=== PATIENT | female | born 1955 | race Caucasian/White ===

== ENCOUNTER 2017-02-21 08:02 | Day surgery (SDC) | payer OTHER ==
[~2017-02-21] VITALS: Ht 157.5 cm; Wt 96.6 kg
[~2017-02-21 08:02] MED LIST: BACTRIM DS TAB1 EACH PO; KEFLEX500 MG PO; LEXAPRO10 MG; OMEPRAZOLE20 MG; RANITIDINE HCL150 MG PO
[2017-02-21] MEDS ORDERED: MULTIVITAMINS1 EAC7 PO (08:15)
[2017-02-21] MEDS ORDERED: CRANBERRY200 MG PO (08:15)
--- NOTE | 2017-02-21 09:37 | NUR ---
02/21/17 0937 Libertad Morris 0934-PATIENT ARRIVED TO PACU ON 3L NC O2 SAT 97% PATIENT LAYING ON LEFT LATERAL SIDE. ABDOMEN SOFT AND ROUND. PATIENT DROWSY ENCOURAGED TO PASS FLATUS.
--- NOTE | 2017-02-21 16:04 | OR ---
[facility] [address], [place] [address] Signed DATE OF PROCEDURE: 02/21/17 PREOPERATIVE DIAGNOSIS: Personal history of colonic polyps 2008. POSTOPERATIVE DIAGNOSIS: Minimal internal hemorrhoids. PROCEDURE: Colonoscopy without biopsy. ESTIMATED BLOOD LOSS: None. INDICATIONS Beverly is a 61-year-old female, who came in 2008 for screening colonoscopy. She had a tubulovillous adenomatous polyp removed in the distal sigmoid colon. She returns now for follow-up. She had missed the 5-year blake. In the meantime, she has no lower GI complaint s. There is no family history of colon cancer or polyps. In the office, I gave Beverly a pamphlet on colonoscopy and we reviewed the nature of the test along with the risks including, but not limited to gas, bloating, crampy abdominal, pain, bleeding, perforation requiring surgery, and missed diagnosis. We also discussed the need for IV conscious sedation. She expressed understanding and wished to proceed. PROCEDURE IN DETAIL Beverly was taken into our endoscopy suite and placed in the left lateral decubitus position. She was given IV sedation with 7 mg of Versed and 150 mcg of fentanyl. She was a bit difficult to keep adequately sedated. If she was a little deep, she wanted to stop breathing and if she was light, she was awaken looking around the room. She might be better served with Propofol in the future. A digital rectal exam was performed and this was unremarkable. The adult colonoscope was introduced and advanced all around into the cecum under direct visualization with camera. The prep was good. The scope was then slowly withdrawn. We saw no pathology throughout the entire colon or rectum. The scope was then retroflexed and she has very minimal internal hemorrhoid columns. After this, the gas was suctioned out and the colonoscope removed. Beverly tolerated the procedure quite well. RECOMMENDATIONS I will see Beverly back in 5 years for repeat colonoscopy. She might consider Propofol at that time. Nayeli Bond MD Electronically Signed By: NAYELI BOND MD 02/21/17 1604 PATIENT NAME: BEVERLY MORENO OPERATIVE REPORT DATE OF : 53 PHYSICIAN: NAYELI BOND MD REPORT #: [id number] REPORT IS CONFIDENTIAL AND NOT TO BE RELEASED WITHOUT AUTHORIZATION [address] [place] [address] Signed /Jose Antonio /[id number] cc: Patricia Saleh PA-C Electronically Signed By: NAYELI BOND MD 02/21/17 1604 PATIENT NAME: BEVERLY MORENO OPERATIVE REPORT DATE OF : 53 PHYSICIAN: NAYELI BOND MD REPORT #: [id number] REPORT IS CONFIDENTIAL AND NOT TO BE RELEASED WITHOUT AUTHORIZATION
== END 2017-02-21 10:12 | disposition home or self-care (01) ==
LOC: OPS 08:02 → DS 09:00 → OPS 09:00
PROVIDERS: Colon & Rectal Surgery
PROC: 0DJD8ZZ Inspection of Lower Intestinal Tract, Via Natural or Artificial Opening Endoscopic (ICD-10-PCS; principal; 2017-02-21 09:00)
DX: Z12.11 Encounter for screening for malignant neoplasm of colon (principal); E66.9 Obesity, unspecified; F32.9 Major depressive disorder, single episode, unspecified; F41.9 Anxiety disorder, unspecified; Z86.010 Personal history of colon polyps; Z98.890 Other specified postprocedural states; Z90.49 Acquired absence of other specified parts of digestive tract; Z88.8 Allergy status to other drugs, medicaments and biological substances; Z68.39 Body mass index [BMI] 39.0-39.9, adult; Z23 Encounter for immunization
CPT/HCPCS: 90674; 99152; 99153; J2250; J3010; J7120

== ENCOUNTER 2020-10-04 00:38 | Emergency (ER) | payer MEDICARE, OTHER ==
[~2020-10-04] VITALS: Ht 157.5 cm; Wt 99.8 kg
[~2020-10-04 00:38] MED LIST changes: +CRANBERRY200 MG PO; +MULTIVITAMINS1 EAC7 PO
[2020-10-04] MEDS ORDERED: ESCITALOPRAM OX10 MG PO (01:02)
[2020-10-04] MEDS ORDERED: HYDROCODON-ACE1 EA10 PO (01:40)
== END 2020-10-04 01:54 | disposition home or self-care (01) ==
LOC: ED 00:38
DX: M25.562 Pain in left knee (principal); Z88.8 Allergy status to other drugs, medicaments and biological substances
CPT/HCPCS: 73560; 99283-25

== ENCOUNTER 2022-07-12 16:30 | Emergency (ER) | payer MEDICARE, OTHER ==
[~2022-07-12] VITALS: Ht 157.5 cm; Wt 99.8 kg
[~2022-07-12 16:30] MED LIST changes: +ESCITALOPRAM OX10 MG PO; +HYDROCODON-ACE1 EA10 PO
[2022-07-12] MEDS ORDERED: LIDOCAINE HCL100 ML MT (17:51)
--- NOTE | 2022-07-13 07:15 | EKG ---
[facility] [address] [facility] [place] [address] Signed Normal sinus rhythm Anterior infarct , age undetermined Abnormal ECG No previous ECGs available Confirmed by MORGAN BRISENO MD ([id number] on 07/13/2022 7:15:16 AM Electronically Signed By: MORGAN BRISENO MD 07/13/22714 PATIENT NAME: BEVERLY MORENO Electrocardiogram DATE OF : 53 PHYSICIAN: MORGAN BRISENO MD REPORT #: [id number] REPORT IS CONFIDENTIAL AND NOT TO BE RELEASED WITHOUT AUTHORIZATION
== END 2022-07-12 18:14 | disposition home or self-care (01) ==
LOC: ED 16:30
DX: K21.9 Gastro-esophageal reflux disease without esophagitis (principal); Z88.8 Allergy status to other drugs, medicaments and biological substances; Z79.899 Other long term (current) drug therapy
CPT/HCPCS: 36415; 80053; 84484; 85025; 93005; 93010; 99285-25

== ENCOUNTER 2024-03-06 10:27 | Emergency (ER) | payer MEDICARE, OTHER ==
[~2024-03-06] VITALS: Ht 157.5 cm; Wt 100.2 kg
[~2024-03-06 10:27] MED LIST changes: +LIDOCAINE HCL100 ML MT
[2024-03-06 12:16] LABS: BASOPHILS 0.5 % (0-2); EOSINOPHILS 1.7 % (0-6); HEMATOCRIT 41.4 % (35.0-50.0); HEMOGLOBIN 14.5 g/dL (12.0-18.0); MCH 32.2 (27-36); MCHC 35.1 g/dl (30-36); MCV 91.7 fl (81-99); MONOCYTES 7.5 % (0-12); NEUTROPHILS 80.3 % (39-80); PLATELET COUNT 224 K/uL (140-440); RBC 4.52 M/ul (4.3-5.7); RDW 13.6 (10.5-15.0)
[2024-03-06 12:30] LABS: ALBUMIN 3.9 g/dL (3.4-5.0); ALBUMIN/GLOBULIN RATIO 1.11 (1.1-2.4); ANION GAP 11.9 (7-21); BILIRUBIN, TOTAL 0.6 ng/dL (0.2-1.0); BUN/CREATININE RATIO 26.66 (6.0-28.6); CALCIUM 8.8 mg/dL (8.5-10.1); CREATININE, SERUM 0.75 mg/dL (0.55-1.02); POTASSIUM 3.9 mmol/L (3.5-5.1); PROTEIN, TOTAL 7.4 g/dL (6.4-8.2)
[2024-03-06] MEDS ORDERED: MELOXICAM15 MG PO (12:32)
[2024-03-06] MEDS ORDERED: LIDOCAINE & ANTACID 35 ML BTL PO ONE (12:45)
[2024-03-06 14:30] VITALS: BP 127/87
== END 2024-03-06 14:30 | disposition home or self-care (01) ==
LOC: ED 10:27
PROVIDERS: Emergency Medicine
DX: K21.9 Gastro-esophageal reflux disease without esophagitis (principal); Z88.8 Allergy status to other drugs, medicaments and biological substances; Z79.899 Other long term (current) drug therapy
CPT/HCPCS: 36415; 80053; 83690; 85025; 99284